=== PATIENT | male | born 1985 | race Caucasian/White ===

== ENCOUNTER 2021-08-14 17:27 | Emergency (ER) | payer OTHER, SELFPAY ==
[2021-08-14 17:40] VITALS: BP 139/78; PULSE 73; RESP 16; TEMP 36.7; O2SAT 99
--- NOTE | 2021-08-14 17:47 | ED.CHESTPAIN ---
HPI - Chest Pain General Chief Complaint: Unspecified Stated Complaint: cp Time Seen by Provider: 08/14/21 17:47 Source: patient Mode of arrival: ambulatory Limitations: no limitations History of Present Illness HPI narrative: 35-year-old male presented for complaint of pain to the left anterior chest/axillary area at 1510 today. This occurred while he was driving and lasted about 10 minutes. Rates 1/10 at this time, at worst about 8/10. Denies associated numbness, tingling, weakness of the left arm, nausea, vomiting, palpitations, dizziness or sweating. Denies cardiac history. Pain is worse with pushing on the pectoral muscles. He has not taken anything for symptoms. Related Data Home Medications Medication Instructions Recorded Confirmed atorvastatin 20 mg tablet tablet 08/14/21 escitalopram oxalate 5 mg tablet tablet 08/14/21 Allergies Allergy/AdvReac Type Severity Reaction Status Date / Time No Known Allergies Allergy Mild Unverified 09/08/11 16:40 Review of Systems Review of Systems: CONSTITUTIONAL: Denies body aches, fever, chills, or sweats. CARDIOVASCULAR: Denies palpitations, or edema. RESPIRATORY: Denies cough or dyspnea. GASTROINTESTINAL: Denies abdominal pain, nausea, vomiting, or diarrhea. SKIN: Denies rash, itching, or wounds. MUSCULOSKELETAL: Denies back pain, joint pain, or myalgia. NEUROLOGIC: Denies headache, numbness, tingling, or weakness. PSYCH: Denies depression or anxiety. All systems reviewed & are unremarkable except as noted in HPI and below PMFSH Comments At time of signature, I have reviewed and agree with nursing past medical, surgical, social and family history unless otherwise noted. Please see nursing chart for further information. There is no relevant family history pertinent to the presenting complaint Exam Narrative: GENERAL: Well-appearing ENT: Mucous membranes pink and moist. CHEST: No respiratory distress. Clear to auscultation. HEART: Regular rate and rhythm. No murmur appreciated. Normal peripheral pulses. ABDOMEN: Soft, nontender, nondistended, normal active bowel sounds. EXTREMITIES: Normal range of motion. No edema. SKIN: Warm, dry, no rash. Capillary refill normal. Normal skin turgor. NEURO: No focal deficits. Alert and oriented x3. Gait steady. Course Course Emergency Course: Patient is aware of diagnosis, understands and agrees to treatment plan. Anticipatory guidance given. Patient agrees to follow-up as directed and is aware of reasons to seek care at the emergency department. Portions of this record may have been created with voice recognition software Level of Care: Express Care Visit Vital Signs Vital signs: Vital Signs Temperature 98.1 F 08/14/21 17:40 Pulse Rate 73 08/14/21 17:40 Respiratory Rate 16 08/14/21 17:40 Blood Pressure 139/78 08/14/21 17:40 Pulse Oximetry 99 08/14/21 17:40 Oxygen Delivery Room Air 08/14/21 17:40 Temperature 98.1 F 08/14/21 17:53 Pulse Rate 73 08/14/21 17:53 Respiratory Rate 16 08/14/21 17:53 Blood Pressure 139/78 08/14/21 17:53 Pulse Oximetry 99 08/14/21 17:53 Oxygen Delivery Room Air 08/14/21 17:53 MDM - Chest Pain MDM Narrative Medical decision making narrative: EKG performed, reviewed with patient. He is advised on treatment for musculoskeletal chest pain. He states that this time he did recall lifting heavy pallets and may have contributed to the pain. He is aware of signs and symptoms to go to the ER. Verbalizes understanding. Differential Diagnosis Differential diagnosis: Likely stable angina, unstable angina pectoris, atypical chest pain, costochondritis and chest pain ECG Data EKG #1: Attestation: I personally reviewed and interpreted this ECG as follows: (Normal sinus rhythm, rate 67. IN interval 127, QRS 103) ECG completion date: 08/14/21 Prior ECG tracings: not available for review EKG Interpretation: normal rate, s
[2021-08-14 17:53] VITALS: BP 139/78; PULSE 73; RESP 16; TEMP 36.7; O2SAT 99
--- NOTE | 2021-08-14 17:56 | ECG_ITS ---
Measurements Intervals [place] Rate: 67 P: 37 [place]: 127 QRS: 26 QRSD: 103 T: 40 QT: 399 QTc: 421 Interpretive Statements SINUS RHYTHM LOW QRS VOLTAGE IN EXTREMITY LEADS [QRS DEFLECTION < 0.5 mV IN LIMB LEADS] OTHERWISE NORMAL ECG NO PREVIOUS ECG AVAILABLE FOR COMPARISON Electronically Signed On 08-15-2021 13:03:08 CDT by Balaji Montano M.D.
== END 2021-08-14 18:05 | disposition home or self-care (01) ==
PROVIDERS: Emergency Provider Nurse Practitioner Family
DX: R07.89 Other chest pain (principal); E78.00 Pure hypercholesterolemia, unspecified; J45.909 Unspecified asthma, uncomplicated
CPT/HCPCS: 93005; 99213; G0463